=== PATIENT | male | born 1960 | race Hispanic/Latino ===

== ENCOUNTER 2023-05-13 20:19 | Observation (INO) | payer OTHER ==
[~2023-05-13] VITALS: Ht 170.2 cm; Wt 93.0 kg
[2023-05-13] MEDS ORDERED: NITROGLYCERIN 30 GM TUBE TD ONE (20:30)
[2023-05-13] MEDS ORDERED: ACETAMINOPHEN 500 MG TABLET PO ONE (20:30)
[2023-05-13 20:56] LABS: EOSINOPHILS % (AUTO) 1.4 % (0.0-8.0); HEMATOCRIT 44.7 % (42-54); LYMPHOCYTES % (AUTO) 23.5 % (21.0-51.0); MEAN CORPUSCULAR HGB CONC 34.9 g/dL (32.0-36.0); MEAN CORPUSCULAR VOLUME 88.7 fL (79-99); MONOCYTES % (AUTO) 7.3 % (3.0-13.0); NEUTROPHILS % (AUTO) 66.3 % (40.0-77.0); PLATELET COUNT (AUTO) 365 K/uL (130-400); RED BLOOD CELL COUNT(AUTO) 5.04 MIL/uL (4.50-6.20); RED CELL DISTRIBUTION WIDTH 12.7 % (11.0-15.5); WHITE BLOOD COUNT (AUTO) 10.1 K/uL (4.8-10.8)
[2023-05-13] MEDS ORDERED: NITROGLYCERIN 1GM OINT 1 INCH/1GM TD ONE (21:00)
[2023-05-13 21:05] LABS: INR 0.94 (0.85-1.15); PROTHROMBIN TIME 10.3 SEC (9.6-11.6)
[2023-05-13 21:07] LABS: PARTIAL THROMBOPLASTIN TIME 25.8 SEC (26.3-35.5)
[2023-05-13 21:11] LABS: ALBUMIN 4.3 g/dL (3.5-5.0); CREATININE 1.1 mg/dL (0.5-1.5); MAGNESIUM 1.9 mg/dL (1.80-2.40); TOTAL PROTEIN, SERUM 7.7 g/dL (6.0-8.3)
[2023-05-13 21:52] LABS: APPEARANCE,URINE CLEAR (CLEAR); BILIRUBIN,URINE NEGATIVE (NEGATIVE); COLOR,URINE LIGHT-YELLOW (YELLOW); GLUCOSE, URINE (UA) NEGATIVE (NEGATIVE); KETONES,URINE NEGATIVE (NEGATIVE); LEUKOCYTE ESTERASE ,URINE NEGATIVE Leu/uL (NEGATIVE); NITRATE,URINE NEGATIVE (NEGATIVE); OCCULT BLOOD,URINE NEGATIVE (NEGATIVE); PROTEIN,URINE 30 mg/dL (NEGATIVE); UROBILINOGEN,URINE 0.2 mg/dL (0.2-1.0)
[2023-05-13 21:54] LABS: MUCUS,URINE RARE LPF (None Seen); RBC,URINE 0-1 /HPF (0-1); WBC,URINE 0-1 /HPF (0-1)
[2023-05-13] MEDS ORDERED: DIAZEPAM 5 MG/ML 2 ML SYG IVP ONE (23:00)
[2023-05-14] VITALS (12 sets, daily range): BP systolic 97–124; BP diastolic 55–79
[2023-05-14] MEDS ORDERED: HEPARIN 25,000 UNITS/250ML D5W 250 ML IV SCH
[2023-05-14] MEDS ORDERED: METOPROLOL TARTRATE 1 MG/ML 5ML VIAL IV ONE (00:30)
[2023-05-14] MEDS ORDERED: HEPARIN 5,000 UNIT VIAL IV ONE (00:30)
[2023-05-14 04:45] LABS: MYOGLOBIN 495 ng/mL (10-92)
[2023-05-14 04:56] LABS: CREATINE KINASE, TOTAL 1602 U/L (21-232)
[2023-05-14 06:31] LABS: HEMATOCRIT 43.9 % (42-54); MEAN CORPUSCULAR HEMOGLOBIN 31.3 pg (27.0-33.0); MEAN CORPUSCULAR HGB CONC 34.4 g/dL (32.0-36.0); MEAN CORPUSCULAR VOLUME 90.9 fL (79-99); RED BLOOD CELL COUNT(AUTO) 4.83 MIL/uL (4.50-6.20); RED CELL DISTRIBUTION WIDTH 12.7 % (11.0-15.5); WHITE BLOOD COUNT (AUTO) 9.7 K/uL (4.8-10.8)
[2023-05-14 07:10] LABS: CREATININE 1.2 mg/dL (0.5-1.5); MAGNESIUM 2.2 mg/dL (1.80-2.40); POTASSIUM 3.8 mmol/L (3.5-5.1)
[2023-05-14 08:41] LABS: AMPHET/METH SCREEN,URINE NEGATIVE (NEGATIVE); BARBITURATE SCREEN, URINE NEGATIVE (NEGATIVE); BENZODIAZEPINES SCREEN,URINE NEGATIVE (NEGATIVE); CANNABINOID SCREEN,URINE NEGATIVE (NEGATIVE); COCAINE SCREEN,URINE NEGATIVE (NEGATIVE); OPIATE SCREEN,URINE NEGATIVE (NEGATIVE); PHENCYCLIDINE SCREEN,URINE NEGATIVE (NEGATIVE)
[2023-05-14] MEDS: PANTOPRAZOLE 40 MG TAB DR PO SCH (08:46)
[2023-05-14] MEDS: ASPIRIN 81MG CHEW TAB PO SCH (08:46)
[2023-05-14] MEDS: 0.9%NACL 1000ML 1,000 ML IV SCH ×2 (08:47→16:00)
[2023-05-14] MEDS ORDERED: ENOXAPARIN SODIUM 100 MG/1 ML SQ SCH (09:00)
[2023-05-14] MEDS ORDERED: CLOPIDOGREL 300MG TAB PO ONE (11:30)
[2023-05-14] MEDS: METOPROLOL TARTRATE 25 MG TAB PO SCH ×3 (11:30→20:49)
[2023-05-14] MEDS ORDERED: AMLO-258 PO (12:23)
[2023-05-14] MEDS ORDERED: ASPI-1197 PO (12:23)
[2023-05-14] MEDS ORDERED: HYDR12.54 PO (12:23)
[2023-05-14] MEDS ORDERED: CLOP-31 PO (12:23)
[2023-05-14] MEDS ORDERED: DULO60CA64 PO (12:23)
[2023-05-14] MEDS ORDERED: ALLO300T2 PO (12:23)
[2023-05-14] MEDS ORDERED: LISI40TA9 PO (12:23)
[2023-05-14] MEDS ORDERED: ATOR10 PO (12:23)
[2023-05-14] MEDS ORDERED: LEVO25TA9 PO (12:23)
[2023-05-14] MEDS ORDERED: FLUO20CA30 PO (12:23)
[2023-05-14] MEDS ORDERED: NAPR-1023 PO (12:23)
[2023-05-14] MEDS ORDERED: METF-446 PO (12:23)
[2023-05-14] MEDS ORDERED: LIDOCAINE HCL 400MG/20ML VIAL ONE (16:17)
[2023-05-14] MEDS ORDERED: IOHEXOL-350 50ML VIAL IV ONE (16:18)
[2023-05-14] MEDS ORDERED: NITROGLYCERIN 50MG VIAL ONE (16:18)
[2023-05-14] MEDS ORDERED: HEPARIN 10,000 UNIT/10ML (1,000 UNIT/ML) VIAL ONE (16:18)
[2023-05-14] MEDS ORDERED: IOHEXOL 350 MG/ML 100ML INFUS..BTL IV ONE (16:18)
[2023-05-14] MEDS ORDERED: BIVALIRUDIN 250 MG/VIAL IV ONE (16:33)
[2023-05-14] MEDS ORDERED: MIDAZOLAM HCL 1 MG/ML 2ML VIAL ONE (16:43)
[2023-05-14] MEDS ORDERED: FENTANYL CITRATE PF 50 MCG/1 ML 2ML VIAL ONE (16:43)
[2023-05-14] MEDS ORDERED: 0.9%NACL 1000ML 1,000 ML IV SCH (18:00)
[2023-05-14] MEDS ORDERED: DIPHENHYDRAMINE HCL 25 MG CAPSULE PO PRN (21:00)
[2023-05-14] MEDS ORDERED: SIMVASTATIN 20 MG TABLET PO SCH (21:00)
[2023-05-15] MEDS: 0.9%NACL 1000ML 1,000 ML IV SCH
[2023-05-15 00:09] VITALS: BP 100/47
[2023-05-15 03:09] VITALS: BP 101/52
[2023-05-15 03:53] LABS: BASOPHILS % (AUTO) 0.6 % (0.0-5.0); EOSINOPHILS % (AUTO) 2.3 % (0.0-8.0); HEMATOCRIT 44.3 % (42-54); MEAN CORPUSCULAR HEMOGLOBIN 30.8 pg (27.0-33.0); MEAN CORPUSCULAR HGB CONC 33.6 g/dL (32.0-36.0); MEAN CORPUSCULAR VOLUME 91.7 fL (79-99); MONOCYTES % (AUTO) 8.4 % (3.0-13.0); NEUTROPHILS % (AUTO) 57.4 % (40.0-77.0); PLATELET COUNT (AUTO) 339 K/uL (130-400); RED BLOOD CELL COUNT(AUTO) 4.83 MIL/uL (4.50-6.20); RED CELL DISTRIBUTION WIDTH 12.7 % (11.0-15.5); WHITE BLOOD COUNT (AUTO) 9.3 K/uL (4.8-10.8)
[2023-05-15 05:03] LABS: CREATININE 1.4 mg/dL (0.5-1.5); POTASSIUM 3.9 mmol/L (3.5-5.1)
[2023-05-15 05:17] LABS: THYROID STIMULATING HORMONE 6.21 uIU/mL (0.36-3.74)
[2023-05-15] MEDS ORDERED: LEVOTHYROXINE 25 MCG TABLET PO SCH (07:30)
[2023-05-15 07:54] VITALS: BP 116/50
[2023-05-15] MEDS ORDERED: DULOXETINE HCL 30 MG CAP PO SCH (09:00)
[2023-05-15] MEDS ORDERED: CLOPIDOGREL 75MG TAB PO SCH (09:00)
[2023-05-15] MEDS ORDERED: NON-FORMULARY MEDICATION 1 EACH (Duloxetine HCl 60 MG) PO SCH (09:00)
[2023-05-15] MEDS ORDERED: FLUOXETINE HCL 20 MG CAPSULE PO SCH (09:00)
[2023-05-15] MEDS ORDERED: LISINOPRIL 40 MG TABLET PO SCH (09:00)
[2023-05-15] MEDS: ASPIRIN 81MG CHEW TAB PO SCH (09:47)
[2023-05-15] MEDS: PANTOPRAZOLE 40 MG TAB DR PO SCH (09:48)
[2023-05-15] MEDS: METOPROLOL TARTRATE 25 MG TAB PO SCH (09:48)
[2023-05-15 12:00] VITALS: BP 116/62
== END 2023-05-15 14:00 | disposition home or self-care (01) ==
LOC: EDH 20:19 → EDHIP 05-14 00:28 → EEVIPCON 05-14 00:28 → 2DH 05-14 12:47
PROVIDERS: ADMIT Internal Medicine Critical Care Medicine; ATTEND Internal Medicine Critical Care Medicine
DX: I21.4 Non-ST elevation (NSTEMI) myocardial infarction (principal); M62.82 Rhabdomyolysis; I10 Essential (primary) hypertension; E66.01 Morbid (severe) obesity due to excess calories; E03.9 Hypothyroidism, unspecified; E11.9 Type 2 diabetes mellitus without complications; E78.5 Hyperlipidemia, unspecified; I21.A1 Myocardial infarction type 2; I25.111 Atherosclerotic heart disease of native coronary artery with angina pectoris with documented spasm; I25.2 Old myocardial infarction; T82.855A Stenosis of coronary artery stent, initial encounter; Z68.32 Body mass index [BMI] 32.0-32.9, adult; Z79.4 Long term (current) use of insulin; Z79.82 Long term (current) use of aspirin; Z79.84 Long term (current) use of oral hypoglycemic drugs; Z95.1 Presence of aortocoronary bypass graft; Z87.891 Personal history of nicotine dependence; Z79.899 Other long term (current) drug therapy; Z98.890 Other specified postprocedural states; Y83.1 Surgical operation with implant of artificial internal device as the cause of abnormal reaction of the patient, or of later complication, without mention of misadventure at the time of the procedure
CPT/HCPCS: 96375 ×2; 99285; 83735 ×3; 84484 ×3; 80053; 85025 ×2; 85610; 85730; 81001; 36415 ×3; 71045; 93005 ×3; 93458; 96376; 96372; 96365; 96366; 82550 ×2; 83874 ×2; 80048 ×2; 80305; 85027; 93306; 93356; 84443; 83880; 82948; J3360; Q0163; C1894 ×2; C1760; Q9965 ×2; G0378 ×34; J3010; J3490 ×3; J2250; J1650; J1644 ×3; Q9967 ×2; 99156; 99157; J0583